=== PATIENT | male | born 1990 | race Caucasian/White ===

== ENCOUNTER 2018-11-13 23:40 | Emergency (ER) | payer SELFPAY ==
[2018-11-13] MEDS ORDERED: WATER FOR INJ,STERILE 10 ML ONE (23:58)
[2018-11-13] MEDS ORDERED: LORazepam 2 MG/ML VIAL ONE (23:58)
[2018-11-13] MEDS ORDERED: ZIPRASIDONE MESYLA 20 MG/VIAL IM ONE (23:58)
[2018-11-14] MEDS ORDERED: THIAMINE 200 MG/2 ML INJ ONE (00:03)
[2018-11-14] MEDS ORDERED: NA CHLORIDE 0.9% 2,000 ML ONE (00:04)
[2018-11-14] MEDS ORDERED: MULTIVITAMINS 10 ML VIAL (INJ) IV ONE (00:04)
[2018-11-14] MEDS ORDERED: FOLIC ACID 5 MG/ML VIAL ONE (00:05)
[2018-11-14 00:10] LABS: Absolute Lymphocytes (CBC) 2.7 K/uL (0.7-4.9); Basophils % 1.2 % (0-1.3); Eosinophils % 1.7 % (0-4.4); Hematocrit 44.5 % (39.6-49.0); Lymphocytes % 23.5 % (15.3-44.8); MPV 8.6 fL (7.6-11.3); Monocytes % 8.7 % (3.3-12.3); RBC Red Blood Cell Count 4.79 M/uL (4.33-5.43)
[2018-11-14 00:14] LABS: Protime INR 1.03
[2018-11-14] MEDS ORDERED: LORazepam 2 MG/ML VIAL ONE (00:18)
[2018-11-14 00:27] LABS: Barbiturates NEGATIVE (NEGATIVE); Benzodiazepines NEGATIVE (NEGATIVE); Cocaine NEGATIVE (NEGATIVE); METHAMPHETAM POSITIVE (NEGATIVE); Methadone NEGATIVE (NEGATIVE); Opiates NEGATIVE (NEGATIVE); Phencyclidine NEGATIVE (NEGATIVE); THC Cannibis POSITIVE (NEGATIVE)
[2018-11-14 00:36] LABS: Urine Blood TRACE (NEG); Urine Glucose NEGATIVE (NEG); Urine Protein NEGATIVE (NEG); Urine pH 5.5 (5.0-7.0)
[2018-11-14 01:33] LABS: ALT/SGPT 26 U/L (12-78); AST/SGOT 18 U/L (15-37); Albumin 4.2 g/dL (3.4-5.0); Alkaline Phosphatase 112 U/L (45-117); BUN Blood Urea Nitrogen 16 mg/dL (7-18); Bicarbonate 27 mmol/L (21-32); Bilirubin Direct < 0.1 mg/dL (0-0.2); Bilirubin Total 0.2 mg/dL (0.2-1.0); Glucose Level 99 mg/dL (74-106); Magnesium 2.8 mg/dL (1.8-2.4); NT PRO-BNP 24 pg/mL (<125); Potassium 3.7 mmol/L (3.5-5.1); Protein, Total 7.5 g/dL (6.4-8.2); Sodium Level 144 mmol/L (136-145); Troponin (Emerg Dept Use Only) < 0.02 ng/mL (0.0-0.045)
--- NOTE | 2018-11-14 01:54 | ER ---
Nurse's Notes [facility] Name: Juan Gates Age: 28 yrs Sex: Male : 1990 Arrival Date: 11/13/2018 Time: 23:41 Bed 3 Private MD: Diagnosis: Alcohol abuse with intoxication;Adverse effect of amphetamines Presentation: 11/13 23:41 Presenting complaint: EMS states: Pt was found on porch of apartment complex where he tl2 was not a resident. Pt was passed out and there was drug paraphernalia at scene. Pt is responsive to pain and verbal but becomes combative when he wakes up. Pt knows name and birthday. Transition of care: patient was not received from another setting of care. Onset of symptoms was November 13, 2018. Risk Assessment: Do you want to hurt yourself or someone else? Patient reports no desire to harm self or others. Initial Sepsis Screen: Does the patient meet any 2 criteria? No. Patient's initial sepsis screen is negative. Does the patient have a suspected source of infection? No. Patient's initial sepsis screen is negative. Care prior to arrival: IV initiated. 20 GA, in the left forearm, Glucose check: 91. 23:41 Method Of Arrival: EMS: [facility] tl2 23:41 Acuity: STEPHANIE 2 tl2 Triage Assessment: 23:45 General: Appears unkempt, Behavior is agitated, combative. Neuro: Level of tl2 Consciousness is awake, confused, Oriented to person. Historical: - Allergies: 23:45 Unable to obtain; tl2 - Home Meds: 23:45 Unable to obtain [Active]; tl2 - PMHx: 23:45 Unable to obtain; tl2 - PSHx: 23:45 Unable to obtain; tl2 - Immunization history:: Adult Immunizations unknown. - Social history:: Smoking status: unknown. - Ebola Screening: : No symptoms or risks identified at this time. - Family history:: not pertinent. Screenin:46 Abuse screen: Denies threats or abuse. Nutritional screening: No deficits noted. tl2 Tuberculosis screening: No symptoms or risk factors identified. Fall Risk IV access (20 points). Assessment: 23:40 General: Appears uncomfortable, unkempt, Behavior is combative, drowsy, restless, rr5 uncooperative, came in brought by EMS and escorted by [employer] on handcuff on, abrasion at bilateral wrist noted. with IV cannula at left forearm G20 from EMS received.GCS 14/15, uncooperative, drowsy, shouting and starting to become restless. seen and examined by ED provider with order made and carried out.. 23:40 Pain: Unable to use pain scale. Patient is disoriented. Neuro: Level of Consciousness rr5 is confused, Oriented to able to answer his name.. Speech is slurred. Cardiovascular: Capillary refill < 3 seconds Patient's skin is warm and dry. Respiratory: Airway is patent Respiratory effort is even, unlabored, Respiratory pattern is regular, symmetrical. GI: No signs and/or symptoms were reported involving the gastrointestinal system. : No signs and/or symptoms were reported regarding the genitourinary system. EENT: No signs and/or symptoms were reported regarding the EENT system. Derm: Skin is intact, Wound noted bilateral wrist. Musculoskeletal: Circulation, motion, and sensation intact. Capillary refill < 3 seconds. 11/14 00:10 Reassessment: Patient appears in no apparent distress at this time. [employer] removed the rr5 handcuff and changed it with soft restraint as ordered by ED provider. 00:22 Reassessment: Patient and/or family updated on plan of care and expected duration. Pain ea level reassessed. Pt resting with eyes closed, respirations even and unlabored. Chest expansions even and symmetrical. no s/s of pain or discomfort noted at this time. 00:25 Reassessment: valuables surrendered to security staff. rr5 01:09 Reassessment: Patient and/or family updated on plan of care and expected duration. Pain ea level reassessed. Pt resting with eyes closed, respirations even and unlabored. Chest expansions even and symmetrical. No s/s of pain or discomfort noted at this time. 02:10 Reassessment: Patient appears in no apparent distress at this time. send via stretcher rr5 to CT scan. 02:20 Reassessment: patient pass urine on the bed. linen and gown changed. rr5 02:25 Reassessment: Patient appears in no apparent distress at this time. CT scan done trying rr5 to transfer back to stretcher patient became uncooperative, combative trying to get out on bed, verbally abusive. maintain on soft restraint. 03:00 Reassessment: restraint untie patient eyes closed on left side lying position, not rr5 aggressive. 03:22 Reassessment: Patient and/or family updated on plan of care and expected duration. Pain ea level reassessed. Pt resting with eyes closed, respirations even and unlabored. Chest expansions even and symmetrical. No s/s of pain or discomfort noted at this time. 04:00 Reassessment: Patient appears in no apparent distress at this time. patient with eyes rr5 closed, breathing spontaneously at room air. no signs and symptoms of discomfort. 05:00 Reassessment: Patient appears in no apparent distress at this time. No changes from rr5 previously documented assessment. 06:00 Reassessment: tried to wake up the patient. he kept his eyes closed. breathing rr5 spontaneously at room, no signs of discomfort noted. 06:30 Reassessment: Patient appears in no apparent distress at this time. No changes from rr5 previously documented assessment. tried to wake him up patient turned on prone position and continue to kept closed his eyes. 07:04 General: Appears comfortable, unkempt, Behavior is drowsy, resting comfortably;. Pain: hj Denies pain. Neuro: Level of Consciousness is obeys commands, Oriented to Speech is normal. Cardiovascular: Capillary refill < 3 seconds Patient's skin is warm and dry. Respiratory: Airway is patent Respiratory effort is even, unlabored, Respiratory pattern is regular, symmetrical. GI: No signs and/or symptoms were reported involving the gastrointestinal system. : No signs and/or symptoms were reported regarding the genitourinary system. EENT: No signs and/or symptoms were reported regarding the EENT system. Derm: Skin is intact, is healthy with good turgor. Derm: Wound noted right arm and left arm. Musculoskeletal: Circulation, motion, and sensation intact. Capillary refill. 08:59 Reassessment: No changes from previously documented assessment. Patient and/or family hj updated on plan of care and expected duration. Pain level reassessed. pt woke up, ready to leave room and be D/C'd; IV D/C'd, pt refused to sign D/C papers;. Vital Signs: 11/13 23:45 BP 137 / 79; Pulse 88; Resp 20; Temp 97.5(O); Pulse Ox 95% on R/A; Weight 72.57 kg; tl2 Height 6 ft. 0 in. (182.88 cm); 11/14 00:15 BP 133 / 100; Pulse 77; Resp 18; Pulse Ox 100% ; ea 00:15 Temp 97.2; rr5 00:50 BP 133 / 98; Pulse 91; Resp 16; Pulse Ox 100% on R/A; rr5 01:30 BP 133 / 98; Pulse 79; Resp 18; Pulse Ox 100% ; ea 02:30 BP 178 / 93; Pulse 85; Resp 18; Pulse Ox 100% ; ea 03:00 BP 150 / 98; Pulse 86; Resp 16; Pulse Ox 100% on R/A; ea 04:00 BP 133 / 82; Pulse 80; Resp 15; Pulse Ox 98% on R/A; rr5 05:00 BP 119 / 82; Pulse 75; Resp 17; Temp 97.5; Pulse Ox 99% on R/A; rr5 05:30 BP 146 / 84; Pulse 81; Resp 18; Pulse Ox 99% on R/A; ea 06:30 BP 125 / 70; Pulse 76; Resp 16; Temp 97.6; Pulse Ox 98% on R/A; rr5 07:06 BP 119 / 73; Pulse 80; Resp 18; Pulse Ox 98% on R/A; hj 09:00 BP 118 / 70; Pulse 78; Resp 18; Pulse Ox 100% on R/A; hj 11/13 23:45 Body Mass Index 21.70 (72.57 kg, 182.88 cm) tl2 [place] Coma Score: 11/13 23:45 Eye Response: spontaneous(4). Verbal Response: confused(4). Motor Response: obeys rr5 commands(6). Total: 14. ED Course: 23:41 Patient arrived in ED. tl2 23:41 Urbano Pérez MD is Attending Physician. jamar 23:44 Triage completed. tl2 23:45 Arm band placed on right wrist. tl2 23:45 valve lapper on. Pulse ox on. NIBP on. rr5 23:46 Patient has correct armband on for positive identification. Placed in gown. Bed in low tl2 position. Side rails up X2. 23:46 Maintain EMS IV. Dressing intact. Site clean \T\ dry. Gauge \T\ site: 20 g L FA. tl 2 11/14 00:05 Straight cath inserted, using sterile technique, 16 Fr. Specimen obtained. Patient rr5 tolerated well. inserted by ordnance engineering technician shanna. 00:11 Radiology exam delayed due to PT COMBATIVE. kw 00:15 Valuables inventory done. Locked in safe. See valuables checklist. Security at bedside. lp1 00:19 Tyree Vargas, RN is Primary Nurse. rr5 00:19 Inserted saline lock: 20 gauge in right forearm, using aseptic technique. lt1 00:35 EKG done, by ED staff, reviewed by Urbano Pérez MD. rr5 00:42 X-ray completed. Portable x-ray completed in exam room. Patient tolerated procedure kw well. 00:43 XRAY Chest (1 view) In Process Unspecified. EDMS 02:29 CT completed. PATIENT HAS BEEN COMBATIVE WHEN WOKEN UP/MOVED. Patient moved to CT via eh stretcher. Patient moved back from CT. 02:46 CT Head C Spine In Process Unspecified. EDMS 05:46 No provider procedures requiring assistance completed. rr5 09:01 IV discontinued, intact, bleeding controlled, No redness/swelling at site. Pressure hj dressing applied. 09:03 IV discontinued, intact, bleeding controlled, No redness/swelling at site. Pressure iw dressing applied. Restraints: 00:10 Violent/Self Destructive Restraint: Order: obtained. Initiated November 14, 2018 at 00:10 rr5 Staff present during the Initiation of Restraint: Charge nurse, staff nurse, ordnance engineering technician, EMS and [employer].. Observed actions/behavior: violent, severely aggressive, confusion/disorientation, impaired decision making, repeated attempts to get up from bed/chair without assistance. unable to follow instructions, verbally abusive, Less restrictive alternatives attempted: reoriented to location, medicated for pain/anxiety, repositioned, Alternative interventions: Ineffective. Clinical justification for use: Violent/self destructing behavior impacts therapeutic environment. Poses a serious danger to physical safety of self \T\ others. Monitoring: Mental status: agitated/restless, confused. Cognition: poor judgement, poor safety awareness, Impulsive, poor attention/concentration, unable to follow commands, short term memory loss, Circulation: Within defined parameters (based on Cardiovascular assessment). Skin integrity: Impaired (see Integumentary assessment) Restraint status: Side rails up x 4 Started. Soft wrist restraint (Right) Started. Soft wrist restraint (Left) Started. 00:30 Violent/Self Destructive Restraint: Observed actions/behavior: rr5 confusion/disorientation, impaired decision making, repeated attempts to get up from bed/chair without assistance. Less restrictive alternatives attempted: reoriented to location, medicated for pain/anxiety, repositioned, Alternative interventions: Ineffective. Clinical justification for use: Violent/self destructing behavior impacts therapeutic environment. Poses a serious danger to physical safety of self \T\ others. Monitoring: Mental status: confused. Cognition: poor judgement, poor safety awareness, Impulsive, poor attention/concentration, unable to follow commands, Circulation: Within defined parameters (based on Cardiovascular assessment). Skin integrity: Impaired (see Integumentary assessment) Restraint status: Side rails up x 4 Continued. Soft wrist restraint (Right) Continued. Soft wrist restraint (Left) Continued. 00:45 Violent/Self Destructive Restraint: Observed actions/behavior: rr5 confusion/disorientation, impaired decision making, repeated attempts to get up from bed/chair without assistance. Less restrictive alternatives attempted: decreased environmental stimuli, reoriented to location, repositioned, covered lines/tubes, Alternative interventions: Ineffective. Clinical justification for use: Violent/self destructing behavior impacts therapeutic environment. Poses a serious danger to physical safety of self \T\ others. Monitoring: Mental status: confused. Cognition: poor judgement, poor safety awareness, Impulsive, poor attention/concentration, unable to follow commands, short term memory loss, Circulation: Within defined parameters (based on Cardiovascular assessment). Skin integrity: Impaired (see Integumentary assessment) Restraint status: Side rails up x 4 Continued. Soft wrist restraint (Right) Started. Soft wrist restraint (Left) Started. 01:00 Violent/Self Destructive Restraint: Observed actions/behavior: rr5 confusion/disorientation, impaired decision making, repeated attempts to get up from bed/chair without assistance. Less restrictive alternatives attempted: reoriented to location, repositioned, covered lines/tubes, Alternative interventions: Ineffective. Clinical justification for use: Violent/self destructing behavior impacts therapeutic environment. Poses a serious danger to physical safety of self \T\ others. Monitoring: Mental status: confused. Cognition: poor judgement, poor safety awareness, Impulsive, poor attention/concentration, unable to follow commands, short term memory loss, Circulation: Within defined parameters (based on Cardiovascular assessment). Skin integrity: Impaired (see Integumentary assessment) Restraint status: Side rails up x 4 Continued. Soft wrist restraint (Right) Continued. Soft wrist restraint (Left) Continued. 01:00 Violent/Self Destructive Restraint: Range of Motion: patient asleep. Hydration/Food: rr5 patient asleep. Elimination/Hygiene: patient asleep. 01:15 Violent/Self Destructive Restraint: Observed actions/behavior: destructive, rr5 confusion/disorientation, impaired decision making, repeated attempts to get up from bed/chair without assistance. unable to follow instructions, Less restrictive alternatives attempted: decreased environmental stimuli, reoriented to location, repositioned, Alternative interventions: Ineffective. Clinical justification for use: Violent/self destructing behavior impacts therapeutic environment. Poses a serious danger to physical safety of self \T\ others. Monitoring: Mental status: agitated/restless, confused. Cognition: poor judgement, poor safety awareness, Impulsive, poor attention/concentration, unable to follow commands, Restraint status: Side rails up x 4 Continued. Soft wrist restraint (Right) Continued. Soft wrist restraint (Left) Continued. 01:30 Violent/Self Destructive Restraint: Observed actions/behavior: rr5 confusion/disorientation, impaired decision making, repeated attempts to get up from bed/chair without assistance. unable to follow instructions, Monitoring: Mental status: confused. Cognition: poor judgement, poor safety awareness, Impulsive, poor attention/concentration, unable to follow commands, Circulation: Within defined parameters (based on Cardiovascular assessment). Skin integrity: Impaired (see Integumentary assessment) Restraint status: Side rails up x 4 Continued. Soft wrist restraint (Right) Continued. Soft wrist restraint (Left) Continued. 01:45 Violent/Self Destructive Restraint: Observed actions/behavior: rr5 confusion/disorientation, impaired decision making, repeated attempts to get up from bed/chair without assistance. unable to follow instructions, Clinical justification for use: Violent/self destructing behavior impacts therapeutic environment. Poses a serious danger to physical safety of self \T\ others. Monitoring: Mental status: confused. Cognition: poor judgement, poor safety awareness, Impulsive, poor attention/concentration, unable to follow commands, Circulation: Within defined parameters (based on Cardiovascular assessment). Skin integrity: Impaired (see Integumentary assessment) Restraint status: Side rails up x 4 Continued. Soft wrist restraint (Right) Continued. Soft wrist restraint (Left) Continued. 02:00 Violent/Self Destructive Restraint: Observed actions/behavior: rr5 confusion/disorientation, impaired decision making, repeated attempts to get up from bed/chair without assistance. unable to follow instructions, Less restrictive alternatives attempted: decreased environmental stimuli, reoriented to location, repositioned, Alternative interventions: Ineffective. Clinical justification for use: Violent/self destructing behavior impacts therapeutic environment. Poses a serious danger to physical safety of self \T\ others. Monitoring: Mental status: confused. Cognition: poor judgement, poor safety awareness, Impulsive, poor attention/concentration, unable to follow commands, Circulation: Within defined parameters (based on Cardiovascular assessment). Skin integrity: Impaired (see Integumentary assessment) Range of Motion: declined. Hydration/Food: patient declined. Elimination/Hygiene: Patient declined. Restraint status: Side rails up x 4 Continued. Soft wrist restraint (Right) Continued. Soft wrist restraint (Left) Continued. 02:15 Violent/Self Destructive Restraint: Observed actions/behavior: destructive, violent, rr5 confusion/disorientation, impaired decision making, repeated attempts to get up from bed/chair without assistance. unable to follow instructions, Less restrictive alternatives attempted: reoriented to location, repositioned, Alternative interventions: Ineffective. Clinical justification for use: Violent/self destructing behavior impacts therapeutic environment. Poses a serious danger to physical safety of self \T\ others. Monitoring: Mental status: agitated/restless, confused. Cognition: poor judgement, poor safety awareness, Impulsive, poor attention/concentration, unable to follow commands, Circulation: Within defined parameters (based on Cardiovascular assessment). Skin integrity: Impaired (see Integumentary assessment) Restraint status: Side rails up x 4 Continued. Soft wrist restraint (Right) Continued. Soft wrist restraint (Left) Continued. 02:30 Violent/Self Destructive Restraint: Observed actions/behavior: destructive, rr5 confusion/disorientation, impaired decision making, repeated attempts to get up from bed/chair without assistance. unable to follow instructions, Less restrictive alternatives attempted: decreased environmental stimuli, reoriented to location, repositioned, Alternative interventions: Ineffective. Clinical justification for use: Violent/self destructing behavior impacts therapeutic environment. Poses a serious danger to physical safety of self \T\ others. Monitoring: Mental status: patient asleep, Cognition: Unable to assess. Circulation: Within defined parameters (based on Cardiovascular assessment). Skin integrity: Impaired (see Integumentary assessment) Restraint status: Side rails up x 4 Continued. Soft wrist restraint (Right) Continued. Soft wrist restraint (Left) Continued. 02:45 Violent/Self Destructive Restraint: Observed actions/behavior: rr5 confusion/disorientation, impaired decision making, repeated attempts to get up from bed/chair without assistance. unable to follow instructions, Less restrictive alternatives attempted: reoriented to location, repositioned, Alternative interventions: Ineffective. Clinical justification for use: Violent/self destructing behavior impacts therapeutic environment. Poses a serious danger to physical safety of self \T\ others. Monitoring: Mental status: patient asleep, Cognition: Unable to assess. Circulation: Within defined parameters (based on Cardiovascular assessment). Skin integrity: Impaired (see Integumentary assessment) Restraint status: Side rails up x 4 Continued. Soft wrist restraint (Right) Continued. Soft wrist restraint (Left) Continued. 03:00 Violent/Self Destructive Restraint: Range of Motion: patient asleep. Hydration/Food: rr5 patient asleep. Elimination/Hygiene: patient asleep. Restraint discontinuation: Discontinued at November 14, 2018 at 03:10 Effective alternative interventions: decrease environmental stimuli, repositioned, patient is asleep on left side lying position. . Administered Medications: 11/13 23:55 Drug: Geodon 20 mg Route: IM; Site: right gluteus; 11/14 00:22 Follow up: Response: No adverse reaction; Marked relief of symptoms 11/13 23:55 Drug: Ativan 2 mg Route: IVP; Site: left antecubital; 11/14 00:21 Follow up: Response: No adverse reaction; Marked relief of symptoms 11/13 23:57 Drug: NS 0.9% 1000 ml Route: IV; Rate: 1 bolus; Site: left forearm; 11/14 04:00 Follow up: Response: No adverse reaction; IV Status: Completed infusion; IV Intake: rr5 1000ml 11/13 23:57 Drug: Thiamine 100 mg Route: IV; Rate: bolus; Site: left forearm; 2 11/14 00:10 Follow up: IV Status: Completed infusion 11/13 23:57 Drug: Banana Bag - (NS 0.9% 1000 ml, foLIC Acid 1 mg, Thiamine 100 mg, Multivitamin 1 tl2 amp) Route: IV; Rate: 125 ml/hr; Site: left forearm; 11/14 04:30 Follow up: Response: No adverse reaction; IV Status: Completed infusion; IV Intake: rr5 1000ml 00:11 Drug: Ativan 2 mg Route: IVP; Site: left antecubital; ea 00:22 Follow up: Response: No adverse reaction; Marked relief of symptoms ea Intake: 04:00 IV: 1000ml; Total: 1000ml. rr5 04:30 IV: 1000ml; Total: 2000ml. rr5 Outcome: 01:53 Discharge ordered by . jamar 09:01 Discharged to home ambulatory. di 09:01 Condition: stable 09:01 Discharge instructions given to patient, Instructed on discharge instructions, follow up and referral plans. Demonstrated understanding of instructions, follow-up care. 09:04 Patient left the ED. iw Signatures: Dispatcher [employer] EDMS Urbano Pérez MD MD cha Hagler, Ervin eh Williams, Irene, RN RN Kelley Gallegos Laura, RN RN lp1 Bry Stephens RN RN hj Knox, Taylor, RN RN tl2 Lilly Watson RN RN ea Roque, Raymond, RN RN rr5 Shanna Weldon 1 Corrections: (The following items were deleted from the chart) 11/13 23:58 23:45 BP 89 / 59; Pulse 88bpm; Resp 20bpm; Pulse Ox 95% RA; Temp 97.5F Oral; 72.57 kg; tl2 Height 6 ft. 0 in.; BMI: 21.7; tl2
--- NOTE | 2018-11-14 01:54 | EDPHYS ---
Physician Documentation [facility] Name: Juan Gates Age: 28 yrs Sex: Male : 1990 Arrival Date: 11/13/2018 Time: 23:41 Bed 3 Private MD: ED Physician Urbano Pérez HPI: 11/13 23:44 This 28 yrs old Male presents to ER via Unassigned with complaints of Altered jamar Mental Status. 23:44 The patient presents with confusion, decreased mental status, decreased responsiveness, jamar disorientation, trouble concentrating. Onset: The symptoms/episode began/occurred at an unknown time. Possible causes: unknown. Associated signs and symptoms: The patient has no apparent associated signs or symptoms. Current symptoms: In the emergency department the patient's symptoms are unchanged from the initial presentation. Patient's baseline: Neuro: alert and fully oriented. It is unknown whether or not the patient has had similar symptoms in the past. Historical: - Allergies: 23:45 Unable to obtain; tl2 - Home Meds: 23:45 Unable to obtain [Active]; tl2 - PMHx: 23:45 Unable to obtain; tl2 - PSHx: 23:45 Unable to obtain; tl2 - Immunization history:: Adult Immunizations unknown. - Social history:: Smoking status: unknown. - Ebola Screening: : No symptoms or risks identified at this time. - Family history:: not pertinent. ROS: 23:44 Constitutional: Negative for fever, chills, and weight loss, Eyes: Negative for injury, jamar pain, redness, and discharge, ENT: Negative for injury, pain, and discharge, Neck: Negative for injury, pain, and swelling, Cardiovascular: Negative for chest pain, palpitations, and edema, Respiratory: Negative for shortness of breath, cough, wheezing, and pleuritic chest pain, Abdomen/GI: Negative for abdominal pain, nausea, vomiting, diarrhea, and constipation, Back: Negative for injury and pain, : Negative for injury, bleeding, discharge, and swelling, MS/Extremity: Negative for injury and deformity, Skin: Negative for injury, rash, and discoloration, Psych: Negative for depression, anxiety, suicide ideation, homicidal ideation, and hallucinations, Allergy/Immunology: Negative for hives, rash, and allergies, Endocrine: Negative for neck swelling, polydipsia, polyuria, polyphagia, and marked weight changes, Hematologic/Lymphatic: Negative for swollen nodes, abnormal bleeding, and unusual bruising. 23:44 Neuro: Positive for altered mental status. Exam: 23:44 Constitutional: This is a well developed, well nourished patient who is awake, alert, jamar and in no acute distress. Head/Face: Normocephalic, atraumatic. Eyes: Pupils equal round and reactive to light, extra-ocular motions intact. Lids and lashes normal. Conjunctiva and sclera are non-icteric and not injected. Cornea within normal limits. Periorbital areas with no swelling, redness, or edema. ENT: Nares patent. No nasal discharge, no septal abnormalities noted. Tympanic membranes are normal and external auditory canals are clear. Oropharynx with no redness, swelling, or masses, exudates, or evidence of obstruction, uvula midline. Mucous membranes moist. Neck: Trachea midline, no thyromegaly or masses palpated, and no cervical lymphadenopathy. Supple, full range of motion without nuchal rigidity, or vertebral point tenderness. No Meningismus. Chest/axilla: Normal chest wall appearance and motion. Nontender with no deformity. No lesions are appreciated. Cardiovascular: Regular rate and rhythm with a normal S1 and S2. No gallops, murmurs, or rubs. Normal PMI, no JVD. No pulse deficits. Respiratory: Lungs have equal breath sounds bilaterally, clear to auscultation and percussion. No rales, rhonchi or wheezes noted. No increased work of breathing, no retractions or nasal flaring. Abdomen/GI: Soft, non-tender, with normal bowel sounds. No distension or tympany. No guarding or rebound. No evidence of tenderness throughout. Back: No spinal tenderness. No costovertebral tenderness. Full range of motion. Male : Normal genitalia with no discharge or lesions. MS/ Extremity: Pulses equal, no cyanosis. Neurovascular intact. Full, normal range of motion. 23:44 Skin: Appearance: Color: pale. 23:44 Neuro: Orientation: no acute changes, Mentation: no acute changes, Motor: is normal, is grossly normal based on the patient's age, no acute changes, Sensation: unable to test, Gait: not tested. Vital Signs: 23:45 BP 137 / 79; Pulse 88; Resp 20; Temp 97.5(O); Pulse Ox 95% on R/A; Weight 72.57 kg; tl2 Height 6 ft. 0 in. (182.88 cm); 11/14 00:15 BP 133 / 100; Pulse 77; Resp 18; Pulse Ox 100% ; ea 00:15 Temp 97.2; rr5 00:50 BP 133 / 98; Pulse 91; Resp 16; Pulse Ox 100% on R/A; rr5 01:30 BP 133 / 98; Pulse 79; Resp 18; Pulse Ox 100% ; ea 02:30 BP 178 / 93; Pulse 85; Resp 18; Pulse Ox 100% ; ea 03:00 BP 150 / 98; Pulse 86; Resp 16; Pulse Ox 100% on R/A; ea 04:00 BP 133 / 82; Pulse 80; Resp 15; Pulse Ox 98% on R/A; rr5 05:00 BP 119 / 82; Pulse 75; Resp 17; Temp 97.5; Pulse Ox 99% on R/A; rr5 05:30 BP 146 / 84; Pulse 81; Resp 18; Pulse Ox 99% on R/A; ea 06:30 BP 125 / 70; Pulse 76; Resp 16; Temp 97.6; Pulse Ox 98% on R/A; rr5 07:06 BP 119 / 73; Pulse 80; Resp 18; Pulse Ox 98% on R/A; hj 09:00 BP 118 / 70; Pulse 78; Resp 18; Pulse Ox 100% on R/A; 11/13 23:45 Body Mass Index 21.70 (72.57 kg, 182.88 cm) tl2 [place] Coma Score: 11/13 23:45 Eye Response: spontaneous(4). Verbal Response: confused(4). Motor Response: obeys rr5 commands(6). Total: 14. MDM: 23:41 Patient medically screened. [facility] 23:47 Data reviewed: vital signs, nurses notes, lab test result(s), EKG, radiologic studies, [facility] CT scan, plain films. 11/13 23:44 Order name: Basic Metabolic Panel [facility] 11/13 23:44 Order name: CBC with Diff; Complete Time: 00:30 [facility] 11/13 23:44 Order name: LFT's; Complete Time: 01:52 [facility] 11/13 23:44 Order name: Magnesium; Complete Time: 01:52 [facility] 11/13 23:44 Order name: NT PRO-BNP; Complete Time: 01:52 [facility] 11/13 23:44 Order name: PT-INR; Complete Time: 00:30 [facility] 11/13 23:44 Order name: Troponin (emerg Dept Use Only); Complete Time: 01:52 [facility] 11/13 23:44 Order name: Acetaminophen; Complete Time: 01:52 [facility] 11/13 23:44 Order name: ETOH Level; Complete Time: 00:30 [facility] 11/13 23:44 Order name: Ptt, Activated; Complete Time: 00:30 [facility] 11/13 23:44 Order name: Salicylate; Complete Time: 01:30 [facility] 11/13 23:44 Order name: Urine Drug Screen; Complete Time: 00:30 [facility] 11/13 23:46 Order name: Basic Metabolic Panel; Complete Time: 01:52 [facility] 11/14 00:12 Order name: Urine Dipstick--Ancillary (enter results); Complete Time: 01:30 [facility] 11/13 23:44 Order name: XRAY Chest (1 view) [facility] 11/13 23:44 Order name: EKG; Complete Time: 23:46 [facility] 11/13 23:44 Order name: Cardiac monitoring; Complete Time: 00:50 [facility] 11/13 23:44 Order name: EKG - Nurse/Tech; Complete Time: 00:50 [facility] 11/13 23:44 Order name: IV Saline Lock; Complete Time: 00:50 [facility] 11/13 23:44 Order name: Labs collected and sent; Complete Time: 00:50 [facility] 11/13 23:44 Order name: O2 Per Protocol; Complete Time: 00:16 [facility] 11/13 23:44 Order name: O2 Sat Monitoring; Complete Time: 00:16 [facility] 11/13 23:44 Order name: CT Head C Spine [facility] 11/14 06:53 Order name: Diet Regular; Complete Time: 06:54 11/13 23:44 Order name: Urine Dipstick-Ancillary (obtain specimen); Complete Time: 00:11 [facility] 11/13 23:44 Order name: Garcia; Complete Time: 00:15 [facility] 11/13 23:44 Order name: Restrain Patient; Complete Time: 00:15 [facility] Administered Medications: 23:55 Drug: Geodon 20 mg Route: IM; Site: right gluteus; ea 11/14 00:22 Follow up: Response: No adverse reaction; Marked relief of symptoms ea 11/13 23:55 Drug: Ativan 2 mg Route: IVP; Site: left antecubital; ea 11/14 00:21 Follow up: Response: No adverse reaction; Marked relief of symptoms ea 11/13 23:57 Drug: NS 0.9% 1000 ml Route: IV; Rate: 1 bolus; Site: left forearm; 2 11/14 04:00 Follow up: Response: No adverse reaction; IV Status: Completed infusion; IV Intake: rr5 1000ml 11/13 23:57 Drug: Thiamine 100 mg Route: IV; Rate: bolus; Site: left forearm; 2 11/14 00:10 Follow up: IV Status: Completed infusion iw 11/13 23:57 Drug: Banana Bag - (NS 0.9% 1000 ml, foLIC Acid 1 mg, Thiamine 100 mg, Multivitamin 1 tl2 amp) Route: IV; Rate: 125 ml/hr; Site: left forearm; 11/14 04:30 Follow up: Response: No adverse reaction; IV Status: Completed infusion; IV Intake: rr5 1000ml 00:11 Drug: Ativan 2 mg Route: IVP; Site: left antecubital; ea 00:22 Follow up: Response: No adverse reaction; Marked relief of symptoms ea Disposition: 11/14/18 01:53 Discharged to Home. Impression: Alcohol abuse with intoxication, Adverse effect of amphetamines. - Condition is Fair. - Discharge Instructions: Alcohol Intoxication, Alcohol Intoxication, [id number], Alcohol Abuse and Nutrition, Stimulant Use Disorder-Methamphetamines. - Medication Reconciliation Form, Thank You Letter, Antibiotic Education, Prescription Opioid Use form. - Follow up: Private Physician; When: 2 - 3 days; Reason: Recheck today's complaints, Continuance of care, Re-evaluation by your physician. - Problem is new. - Symptoms have improved. Signatures: Dispatcher [employer] EDUrbano Syed MD MD cha Williams, Irene RN Ritu Almaraz RN RN tl2 Lilly Watson RN RN ea Roque, Raymond RN rr5 Corrections: (The following items were deleted from the chart) 09:04 01:53 11/14/2018 01:53 Discharged to Home. Impression: Alcohol abuse with intoxication; iw Adverse effect of amphetamines. Condition is Fair. Discharge Instructions: Alcohol Intoxication, Alcohol Intoxication, [id number], Alcohol Abuse and Nutrition, Stimulant Use Disorder-Methamphetamines. Forms are Medication Reconciliation Form, Thank You Letter, Antibiotic Education, Prescription Opioid Use. Follow up: Private Physician; When: 2 - 3 days; Reason: Recheck today's complaints, Continuance of care, Re-evaluation by your physician. Problem is new. Symptoms have improved. jamar
--- NOTE | 2018-11-14 07:45 | RAD REPORT ---
EXAM DESCRIPTION: Marcelina Single View11/14/2018 12:44 am CLINICAL HISTORY: Cough COMPARISON: none FINDINGS: The lungs appear clear of acute infiltrate. The heart is normal size IMPRESSION: No acute abnormalities displayed
--- NOTE | 2018-11-14 08:25 | EKG ---
Test Date: 2018-11-14 Test Time: 00:34:48 Dye Range Tender: JEROME MEASUREMENT RESULTS: Intervals: Rate: 85 ME: 146 QRSD: 86 QT: 394 QTc: 468 [place]: P: 79 ME: 146 QRS: 91 T: 63 INTERPRETIVE STATEMENTS: Normal sinus rhythm Rightward axis Borderline ECG No previous ECG available for comparison Electronically Signed On 11-14-18 08:24:47 CDT by John Knapp
--- NOTE | 2018-11-14 11:35 | RAD REPORT ---
EXAM DESCRIPTION: CT - Head C Spine Mpr Wo Con - 11/14/2018 3:23 am CLINICAL HISTORY: DEFORMITY COMPARISON: None available TECHNIQUE: Axial CT of the head obtained from the skull apex to the skull base without contrast. Axi al CT images of the cervical spine obtained from the skull base through the thoracic inlet. Sagittal and coronal reformatted images available. FINDINGS: CT head: No acute intracranial hemorrhage identified. No mass, mass effect, shift of the midline, abnormal ext ra-axial fluid collection or CT evidence of acute ischemic change identified. The ventricular system is unremarkable. No acute abnormalities of the supratentorial white matter, basal ganglia, cerebell um, or brainstem. The visualized paranasal sinuses and the mastoids are clear. No skull fracture identified. Visualized orbits and globes are unremarkable. Cervical CT: Alignment of the cervical spine is maintained without evidence of subluxation. The atlantoaxial, at lantodental, and occipitoatlantal intervals are preserved. No fracture identified. Vertebral body h eight preserved. Prevertebral soft tissues are unremarkable. Intervertebral disc height preserved. Visualized skull base is intact. No fracture of the visualized facial bones. Visualized mastoid air c ells and paranasal sinuses are well aerated. Visualized thyroid is unremarkable. No cervical lymphadenopathy. No pneumothorax in the visualized lung apices. DLP: 1151.4 mGy-cm IMPRESSION: 1. No acute intracranial abnormality. 2. No acute fracture or subluxation of the cervical spine. This exam was performed according to our departmental dose-optimization program, which includes autom ated exposure control, adjustment of the mA and/or kV according to patient size and/or use of iterati ve reconstruction technique. Electronically signed by: Quentin Batres 11/14/2018 2:59 AM CDT Due to temporary technical issues with the PACS/Fluency reporting system, reports are being signed by the in house radiologist as a courtesy to ensure prompt reporting. The interpreting radiologist is f ully responsible for the content of the report.
== END 2018-11-14 09:04 | disposition home or self-care (01) ==
LOC: ER 23:40
DX: F10.129 Alcohol abuse with intoxication, unspecified (principal); T43.625A Adverse effect of amphetamines, initial encounter
CPT/HCPCS: 36415; 51702; 70450; 71045; 72125; 80048; 80076; 80307; 80320; 80329; 81003; 83735; 83880; 84484; 85025; 85610; 85730; 93005; 96372; 99285; J3486